=== PATIENT | female | born 1965 | race Caucasian/White ===

== ENCOUNTER 2017-06-10 12:46 | Emergency (ER) | payer OTHER ==
[~2017-06-10] VITALS: Ht 162.6 cm; Wt 230.0 kg
[~2017-06-10 12:46] MED LIST: ATEN50TA PO; LOSA50TA2 PO; MELO-110 PO; SIMV10TA PO
[2017-06-10 13:03] VITALS: Ht 162.6 cm; Wt 230.0 kg
[2017-06-10 13:14] LABS: BASOPHILS % 0.3 % (0.0-2.0); EOSINOPHILS # 0.2 10^3/ul (0.0-0.5); HEMOGLOBIN 11.9 g/dl (12.0-16.0); LYMPHOCYTES # 1.1 10^3/ul (0.8-2.9); LYMPHOCYTES % 18.9 % (15.0-51.0); MEAN CORPUSCULAR HEMOGLOBIN 29.6 pg (29.0-33.0); MEAN CORPUSCULAR HGB CONC 31.3 g/dl (32.0-37.0); MEAN CORPUSCULAR VOLUME 94.5 fl (82.0-101.0); MEAN PLATELET VOLUME 8.8 fl (7.4-10.4); MONOCYTE # 0.5 10^3/ul (0.3-0.9); NEUTROPHILS % 69.3 % (39.0-77.0); PLATELET COUNT 253 10^3/UL (140-415); RED BLOOD COUNT 4.02 10^6/ul (4.20-5.40); RED CELL DISTRIBUTION WIDTH 15.7 % (11.5-14.5)
[2017-06-10 13:30] LABS: INR 3.02; PROTIME 31.7 Sec (12.2-14.2); PT RATIO 2.5
[2017-06-10 13:31] LABS: PARTIAL THROMBOPLASTIN TIME 48.2 Sec (25.0-35.0)
[2017-06-10 13:35] LABS: CALCIUM 8.8 mg/dl (8.4-10.2); CREATININE 0.64 mg/dl (0.44-1.00); POTASSIUM 3.5 mmol/L (3.5-5.1)
[2017-06-10 13:47] LABS: TROPONIN-I 0.065 ng/ml (0.00-0.12)
--- NOTE | 2017-06-10 14:09 | ERA ---
ER Documentation Chief Complaint Date/Time DATE: 06/10/17 TIME: 14:04 Chief Complaint right sided facial numbness and slurred speech HPI Patient is a 51-year-old female with hypertension and atrial fibrillation and obesity who presents with slurred speech and facial numbness. The patient was brought in by ambulance. The patient was seen in the emergency department at [facility] last night and was discharged at approximately 3 AM for chest pain. The patient went to bed at 10 AM when she got home from the emergency department and woke up at 12:15 PM. When she woke up she had a facial droop, numbness of the face, and slurred speech. She is currently taking Coumadin for atrial fibrillation. ROS All systems reviewed and are negative except as per history of present illness. Medications Home Meds Reported Medications Meloxicam* (Mobic*) 15 Mg Tablet, 15 MG PO DAILY 10/11/11 Losartan Potassium* (Cozaar*) 50 Mg Tablet, 50 MG PO DAILY 10/11/11 Atenolol* (Atenolol*) 50 Mg Tablet, 50 MG PO BID 10/11/11 Simvastatin* (Zocor*) 10 Mg Tablet, 10 MG PO HS 10/11/11 Allergies Allergies: Coded Allergies: Prochlorperazine (Verified Allergy, Mild, NERVOUSNESS, 10/11/11) morphine (Verified Allergy, Mild, NERVOUSNESS, 10/11/11) PMhx/Soc History of Surgery: No Anesthesia Reaction: No Hx Neurological Disorder: No Hx Respiratory Disorders: No Hx Cardiac Disorders: Yes (htn, afib) Hx Psychiatric Problems: No Hx Miscellaneous Medical Probl: Yes (dm, obesity) Hx Alcohol Use: No Hx Substance Use: No Hx Tobacco Use: No Smoking Status: Never smoker FmHx Family History: diabetes Physical Exam Vitals Vital Signs Date Time Temp Pulse Resp B/P Pulse Ox O2 Delivery O2 Flow Rate FiO2 06/10/17 13:03 97.8 83 18 132/90 98 Physical Exam Const: Mild distress Head: Atraumatic Eyes: Normal Conjunctiva ENT: Normal External Ears, Nose and Mouth. Neck: Full range of motion..~ No meningismus. Resp: Clear to auscultation bilaterally Cardio: Regular rate and rhythm, no murmurs Abd: Soft, Severe obesity Skin: No petechiae or rashes Back: No midline or flank tenderness Ext: No cyanosis, or edema Neur: Awake and alert, Slurred speech, left-sided facial droop, does not move lower extremities at baseline Psych: Normal Mood and Affect Result Diagram: 06/10/17 1300 06/10/17 1300 Results 24 hrs Laboratory Tests Test 06/10/17 13:00 06/10/17 13:06 White Blood Count 6.010^3/ul Red Blood Count 4.0210^6/ul Hemoglobin 11.9g/dl Hematocrit 38.0% Mean Corpuscular Volume 94.5fl Mean Corpuscular Hemoglobin 29.6pg Mean Corpuscular Hemoglobin Concent 31.3g/dl Red Cell Distribution Width 15.7% Platelet Count 14301^3/UL Mean Platelet Volume 8.8fl Neutrophils % 69.3% Lymphocytes % 18.9% Monocytes % 8.0% Eosinophils % 3.0% Basophils % 0.3% Nucleated Red Blood Cells % 0.0/100WBC Neutrophils # (Manual) 4.110^3/ul Lymphocytes # 1.110^3/ul Monocytes # 0.510^3/ul Eosinophils # 0.210^3/ul Basophils # 0.010^3/ul Nucleated Red Blood Cells # 0.010^3/ul Prothrombin Time Pending Prothrombin Time Ratio 2.5 INR International Normalized Ratio 3.02 Activated Partial Thromboplast Time 48.2Sec Sodium Level 148mmol/L Potassium Level 3.5mmol/L Chloride Level 106mmol/L Carbon Dioxide Level 27mmol/L Anion Gap 19 Blood Urea Nitrogen 5mg/dl Creatinine 0.64mg/dl Glucose Level 105mg/dl Hemoglobin A1c 5.7% Calcium Level 8.8mg/dl Troponin I 0.065ng/ml Bedside Glucose 102mg/dL Procedures/[facility] EKG #1 read by me: Rate/Rhythm: Atrial fibrillation at a rate of 85 Intervals: Normal Impression: Atrial fibrillation without ischemia EKG #2 read by me: Rate/Rhythm: Atrial fibrillation at a rate of 83 Intervals: Normal Impression: Atrial fibrillation without ischemia CT brain unable to be performed given the patient's weight of 230 kg. Chest x-ray pending at this time. Patient is a 51-year-old female who presents with a possible stroke. She had slurred speech and left-sided facial droop with a last well-known time of 10 AM. A code stroke was called immediately upon arrival. At 1:05 PM I spoke with Dr. Sawyer from tele-neurology who recommended not giving TPA as the risks would outweigh the benefits in this case. I agree with her. At 1:11 PM I called [facility] from [facility] as the patient has [facility] insurance and I spoke with Dr. Keith who has accepted the patient in transfer. The patient will not be given aspirin per neurology as she is already on Coumadin and again the risk would outweigh the benefits. The patient will be transferred to [facility] for further workup for stroke versus TIA. She also has chest pain but has 2 EKGs which did not show signs of ST elevations or depressions and I doubt acute coronary syndrome at this time. Critical Care: Time: 35 minutes excluding all billable procedures. Treatments/Evaluations: Close monitoring and treatment of unstable vital signs, cardiorespiratory, and neurologic status, while maintaining tight balance of fluid, respiratory, and cardiac interventions. Departure Diagnosis: Primary Impression: Chest pain Qualified Code: R07.9 - Chest pain, unspecified type Additional Impressions: Acute weakness TIA (transient ischemic attack) Qualified Code: G45.9 - Transient cerebral ischemia, unspecified type Condition: REINALDO Emery MD Jun 10, 2017 14:09
[2017-06-10] MEDS ORDERED: ACETAMINOPHEN 325 MG TAB ONE (14:27)
--- NOTE | 2017-06-10 14:35 | RADRPT ---
PROCEDURE: XR Chest. CLINICAL INDICATION: Shortness of breath. TECHNIQUE: Single frontal view. COMPARISON: None. FINDINGS: The lungs are clear. The heart is mildly enlarged. There is no pleural effusion. There is no pneumothorax. IMPRESSION: 1. Mild cardiomegaly. 2. Clear lungs. RPTAT: QQ .Hu Polanco MD, MD Date Time Electronically viewed and signed by .Hu Polanco MD, on 06/10/2017 14:35 .R/
[2017-06-10] MEDS ORDERED: ACETAMINOPHEN 325 MG TAB PO ONE (15:00)
[2017-06-10 15:12] VITALS: BP 133/67; PULSE 86; RESP 16; TEMP 98.7
--- NOTE | 2017-06-11 01:40 | STROKE ---
Date/Time of Note Date/Time of Note DATE: 06/11/17 TIME: 01:09 Patient Information General Patient location: emergency Arrival Date Age 51 Gender female Weight 230 kg POC Glucose Glucose Result Bedside Glucose - 72 Hours Test 06/10/17 13:06 Bedside Glucose 102mg/dL (70-220) Vital Signs Vital Signs Vital Signs Date Time Temp Pulse Resp B/P Pulse Ox O2 Delivery O2 Flow Rate FiO2 06/10/17 15:12 98.7 86 16 133/67 98 Room Air Patient History Current Medications Allergies: Coded Allergies: Prochlorperazine (Verified Allergy, Mild, NERVOUSNESS, 10/11/11) morphine (Verified Allergy, Mild, NERVOUSNESS, 10/11/11) Labs Hematology Labs Hematology Test 06/10/17 13:00 White Blood Count 6.010^3/ul (4.8-10.8) Red Blood Count 4.0210^6/ul (4.20-5.40) Hemoglobin 11.9g/dl (12.0-16.0) Hematocrit 38.0% (37.0-47.0) Mean Corpuscular Volume 94.5fl (82.0-101.0) Mean Corpuscular Hemoglobin 29.6pg (29.0-33.0) Mean Corpuscular Hemoglobin Concent 31.3g/dl (32.0-37.0) Red Cell Distribution Width 15.7% (11.5-14.5) Platelet Count 48352^3/UL (140-415) Mean Platelet Volume 8.8fl (7.4-10.4) Neutrophils % 69.3% (39.0-77.0) Lymphocytes % 18.9% (15.0-51.0) Monocytes % 8.0% (0.0-11.0) Eosinophils % 3.0% (0.0-7.0) Basophils % 0.3% (0.0-2.0) Nucleated Red Blood Cells % 0.0/100WBC (0.0-0.0) Neutrophils # (Manual) 4.110^3/ul (1.7-7.5) Lymphocytes # 1.110^3/ul (0.8-2.9) Monocytes # 0.510^3/ul (0.3-0.9) Eosinophils # 0.210^3/ul (0.0-0.5) Basophils # 0.010^3/ul (0.0-0.1) Nucleated Red Blood Cells # 0.010^3/ul (0.0-0.0) Chemistry Labs Chemistry Test 06/10/17 13:00 06/10/17 13:06 Sodium Level 148mmol/L (135-144) Potassium Level 3.5mmol/L (3.5-5.1) Chloride Level 106mmol/L (97-110) Carbon Dioxide Level 27mmol/L (21-31) Anion Gap 19 (8-16) Blood Urea Nitrogen 5mg/dl (7-20) Creatinine 0.64mg/dl (0.44-1.00) Glucose Level 105mg/dl (70-220) Hemoglobin A1c 5.7% (0-5.9) Calcium Level 8.8mg/dl (8.4-10.2) Troponin I 0.065ng/ml (0.00-0.12) Bedside Glucose 102mg/dL (70-220) Coagulation Labs: Coagulation Test 06/10/17 13:00 Prothrombin Time 31.7Sec (12.2-14.2) Prothrombin Time Ratio 2.5 INR International Normalized Ratio 3.02 Activated Partial Thromboplast Time 48.2Sec (25.0-35.0) History & Physical Patient History Notes Pt Hx Reviewed History of Present Illness 51yo went to for chest pain and discharged this morning now presents with acute onset slurred speech and left facial droop. Patient is on Coumadin. Patient reports that at 9pm last night she noticed numbness in the whole bottom of the face. Went to sleep for a nap at 10am and woke at 12:15pm and woke with right facial weakness and slurred speech. Review of Systems Constitutional: no symptoms reported EENTM: no symptoms reported Respiratory: no symptoms reported Cardiovascular: no symptoms reported Gastrointestinal: no symptoms reported Genitourinary: no symptoms reported Musculoskeletal: no symptoms reported Skin: no symptoms reported Psychiatric/Neurological: no symptoms reported All Other Systems: Reviewed and Negative NIH Stroke Scale NIH Stroke Scale 1A - Level of Conciousness: 0 - Alert keenly [id number] LOC Questions: 0 - Answers both [id number] - LOC Commands: 0 - Performs both tasks2 - Best Gaze: 0 - Normal3 - Visual: 0 - No visual loss4 - Facial Palsy: 0 - No visual loss 5A - Motor Arm - Left: 0 - No [id number] - Motor Arm - Right: 0 - No [id number] - Motor Leg - Left: 0 - No [id number] - Motor Leg - Right: 0 - No drift7 - Limb Ataxia: 0 - Absent8 - Sensory: 1 - Mild to moderate loss9 - Best Language: 0 - No aphasia or normalDysarthria: 0 - [id number] - Extinction and inattentio: 0 - No abnormalityTotal Score: 1 Date/Time Recorded DATE: 06/10/17 TIME: 14:00 Submitted By Diane Sawyer t-PA Imaging Review Imaging Reviewed: No Date/Time Imaging Reviewed Reason Not Reviewed No CT Head available as this could not be obtained due to patient weight. Inclusion/Exclusion Criteria No CT available Symptoms mild and resolving t-PA Administration Recommendation: No Weight 230 kg Recommedation submitted by Diane Sawyer Reason t-PA not Recommended above exclusion criteria Recommendations Impression Diagnosis acute ischemic stroke Recommendation 51yo F presents with acute onset left facial droop and slurred speech. Neurological exam is notable for right face, arm, and leg numbness. I suspect patient has an acute ischemic stroke. Patient is unable to undergo CT due to being over 500lb. She is also on Coumadin but INR is pending. I recommended against IV TPA due to being unable to obtain CT Head, but patients symptoms are improving and now very mild and so I would have recommended against IV TPA regardless for mild and improving symptoms. I recommend further workup include MRI Brain without gadolinium, MRA of the head without gadolinium, and MRA of the neck with gadolinium. If patient is unable to undergo MR studies due to her size and/or weight, then I recommend carotid ultrasound with attention to the vertebral arteries as well. I recommend continue Coumadin as I believe patients ischemic stroke is likely small. Diagnostic Labs: Lipid Proile Hgb A1C CMP CBC w/Diff Coags Therapy: Physical Therapy Speech Therapy Occupational Therapy Misc. Recommendations: Bedside Swallow Evaluation Pnumatic Compression Devices Stroke Education Smoking Education DIANE SAWYER Jun 11, 2017 01:20
== END 2017-06-10 15:30 | disposition short-term general hospital (02) ==
LOC: E/R 12:46
DX: R07.9 Chest pain, unspecified (principal); R53.1 Weakness; G45.9 Transient cerebral ischemic attack, unspecified; E11.9 Type 2 diabetes mellitus without complications; I10 Essential (primary) hypertension; E66.9 Obesity, unspecified; Z68.45 Body mass index [BMI] 70 or greater, adult; Z79.01 Long term (current) use of anticoagulants
CPT/HCPCS: 36415; 71010; 80048; 82962; 83036; 84484; 85025; 85610; 85730; 93005; Z7502; Z7610

== ENCOUNTER 2017-11-19 21:00 | Emergency (ER) | END 2017-11-20 01:58 | disposition short-term general hospital (02) ==